=== PATIENT | male | born 1990 | race Caucasian/White ===

== ENCOUNTER 2017-06-04 05:09 | Emergency (ER) | payer OTHER ==
[2017-06-04] MEDS ORDERED: PREDNISOLONE ACETATE 1% OPH SUSP 5 ML OU ONE (07:55)
[2017-06-04] MEDS ORDERED: CYCLOPENTOLATE HCL 2% OPH SOLN 2 ML OS ONE (08:00)
--- NOTE | 2017-06-04 08:02 | ER Document Report ---
ED Eye Complaint - General Chief Complaint: Eye Pain Stated Complaint: EYE PAIN/IRRITATION Time Seen by Provider: 06/04/17 07:10 Mode of Arrival: Ambulatory Information source: Patient Notes: Patient is a 26-year-old male who presents to the ER today for pain, redness, watering and blurred vision to the left eye 1 week. Patient denies any medical history, denies any injury to the eye, denies any yellow or green discharge, runny nose, cough or other upper respiratory symptoms. Patient states that he has been using Clear Eyes for the redness but has not been helping. Patient states that over the past day or 2 his vision has gotten more blurry. TRAVEL OUTSIDE OF THE [place] IN LAST 30 DAYS: No COUNTRY TRAVELED TO/FROM: [place] - Related Data Allergies/Adverse Reactions: No Known Allergies Allergy (Verified 06/04/17 05:19) Past Medical History - General Information source: Patient - Social History Smoking Status: Unknown if Ever Smoked Family History: Reviewed & Not Pertinent Patient has suicidal ideation: No Patient has homicidal ideation: No - Past Medical History Cardiac Medical History: Denies: Hx Coronary Artery Disease, Hx Heart Attack, Hx Hypertension Pulmonary Medical History: Denies: Hx Asthma, Hx Bronchitis, Hx COPD, Hx Pneumonia Neurological Medical History: Denies: Hx Cerebrovascular Accident, Hx Seizures Renal/ Medical History: Denies: Hx Peritoneal Dialysis Musculoskeltal Medical History: Denies Hx Arthritis - Immunizations Hx Diphtheria, Pertussis, Tetanus Vaccination: Yes Review of Systems - Review of Systems Constitutional: No symptoms reported EENT: See HPI Cardiovascular: No symptoms reported Respiratory: No symptoms reported Gastrointestinal: No symptoms reported Genitourinary: No symptoms reported Male Genitourinary: No symptoms reported Musculoskeletal: No symptoms reported Skin: No symptoms reported Hematologic/Lymphatic: No symptoms reported Neurological/Psychological: No symptoms reported Physical Exam - Notes Notes: PHYSICAL EXAMINATION: GENERAL: Well-appearing and in no acute distress. HEAD: Atraumatic, normocephalic. EYES: Pupils equal round and reactive to light, extraocular movements intact, sclera anicteric, left sclera erythematous, left conjunctiva watering, erythematous ENT: ear canals without erythema or foreign body, TMs pearly sullivan with good bony landmarks, nares patent, oropharynx clear without exudates. Moist mucous membranes. NECK: Normal range of motion, supple without lymphadenopathy LUNGS: CTAB and equal. No wheezes rales or rhonchi. HEART: Regular rate and rhythm without murmurs EXTREMITIES: Normal range of motion, no pitting edema. No cyanosis. NEUROLOGICAL: Cranial nerves grossly intact. Normal sensory/motor exams. PSYCH: Normal mood, normal affect. SKIN: Warm, Dry, normal turgor, no rashes or lesions noted Course - Re-evaluation Re-evalutation: 06/04/17 08:22 Fluorescein stain revealed no evidence of ulcer, abrasion, foreign body, pressures using Curly-Pen were 26, 24 and 24 consecutively. Patient will be placed on prednisolone eyedrops, Viroptic eyedrops for anterior uveitis and given follow-up with ophthalmology tomorrow. Patient's eye were dilated here Procedures - Eye Procedure Left Time completed: 08:00 Eye Irrigated w/ Saline (ccs): 30 Alcaine Drops Administered: Yes Fluorescein applied: Left Cyclogel 2 Drops Administered: Left eye Slit lamp used: No Notes: 06/04/17 08:23 Erythema, watering, no evidence of foreign body, ulceration or abrasion Discharge - Discharge Clinical Impression: Acute anterior uveitis of left eye Condition: Stable Disposition: HOME, SELF-CARE Additional Instructions: Return immediately for any new or worsening symptoms. Follow up with heel cementer, call tomorrow to make followup appointment. Prescriptions: Prednisolone Acetate/Nepafenac [Prednisolone 1%-Nepafenac 0.1%] 1 drop OS TID # 1 bottle Trifluridine [Viroptic 1% Oph Soln 7.5 Ml Bottle] 1 drop OS Q4 #1 bottle Forms: Return to Work Referrals: RADHA PINK DO [ACTIVE STAFF] - Follow up as needed
[2017-06-04] MEDS ORDERED: TETRACAINE HCL 0.5% OPH SOLN 2 ML ONE (08:11)
== END 2017-06-04 08:39 | disposition home or self-care (01) ==
LOC: ER 05:09
DX: H20.00 Unspecified acute and subacute iridocyclitis (principal); H53.8 Other visual disturbances; H57.12 Ocular pain, left eye
CPT/HCPCS: 99283; J3490